=== PATIENT | male | born 1990 | race Caucasian/White ===

== ENCOUNTER 2019-03-12 19:44 | Emergency (ER) | payer BC, OTHER ==
[~2019-03-12] VITALS: Ht 188 cm; Wt 145.1 kg
[2019-03-12 19:54] VITALS: BP 124/95
[2019-03-12] MEDS ORDERED: BACLOFEN 10 MG TAB PO ONE (23:45)
[2019-03-12] MEDS ORDERED: HYDROcodone-ACET 10/325MG TAB PO ONE (23:45)
[2019-03-12] MEDS ORDERED: LIDOCAINE 1% HCL (LOCAL ANESTH.) INJ 20ML MDV IJ ONE (23:45)
== END 2019-03-13 00:40 | disposition home or self-care (01) ==
LOC: ER 19:44
DX: M62.838 Other muscle spasm (principal); Z88.1 Allergy status to other antibiotic agents
CPT/HCPCS: 29505; 72100; 73562; 99283; J2001